=== PATIENT | female | born 1985 | race Caucasian/White ===

== ENCOUNTER → 2021-12-18 09:32 | Outpatient (CLI) | payer OTHER, SELFPAY ==
--- NOTE | ~2021-12-18 | US_ITS ---
EXAMINATION: US pelvic complete DATE: 12/18/2021 09:56 INDICATION: Abnormal uterine bleeding Comparison:No prior studies for comparison. TECHNIQUE: Multiple transabdominal and endovaginal sonographic images of the pelvis performed. FINDINGS: The uterus measures 12.1 x 5.2 x 7.2 cm. There are uterine fibroids measuring up to 6.5 and 5.1 cm maximum dimension respectively. The endometrial complex measures 1 cm. The right ovary measures 3.5 x 2.3 x 2.5 cm and the left ovary measures 2.5 x 1.9 x 2.1 cm. There ar e small follicles in each ovary. Normal doppler signal in both ovaries. There is no free fluid in the pelvis. There are no abnormal masses seen on either side. IMPRESSION: 1. Enlarged fibroid uterus. Reviewed, dictated and finalized at location A. IMPRESSION: 1. Enlarged fibroid uterus.
== END ==
PROVIDERS: PCP Nurse Practitioner; Visit Provider Nurse Practitioner
DX: N93.8 Other specified abnormal uterine and vaginal bleeding (principal); D25.9 Leiomyoma of uterus, unspecified
CPT/HCPCS: 76856

== ENCOUNTER 2023-06-24 13:19 | Emergency (ER) | payer OTHER, SELFPAY ==
[2023-06-24 13:20] VITALS: BP 149/99; PULSE 96; RESP 18; TEMP 36.6; O2SAT 100
[2023-06-24 15:48] VITALS: BP 154/94; PULSE 94; RESP 16; O2SAT 97
--- NOTE | 2023-06-24 16:12 | ED.GENADULT ---
HPI - General Adult General Chief complaint: Unspecified Stated complaint: issues standing x2 days, no appetite Time Seen by Provider: 06/24/23 16:10 Source: patient and other (fiance) History of Present Illness HPI narrative: This is a 38 yo female who presents with complaint of bilateral lower extremity weakness. She states this is causing issues with standing and walking for the past 2 days. She denies any pain or paresthesias. The issue is in her thighs and calves where she feels like she has decreased strength. No recent strenous work out or activity. She denies any diarrhea, cough, chest pain, difficulty breathing. No new medications. No headache. She states she doesn't have an appetite. She accidentally took a dose of Procardia too soon on Monday (took 2 doses within 12 hours of each other rather than 24 hours) which left her feeling lightheaded adn weak. She say Dr Raygoza's [employer] yesterday for a BP follow up but her BP was fine. Her fiance has had a headache. They deny any carbon monoxide producing devices in the home (have an electric space heater that isn't even currently being used). LMP October in the setting of bring on oral contraception. She is on iron supplementation. Related Data Allergies Allergy/AdvReac Type Severity Reaction Status Date / Time No Known Allergies Allergy Verified 06/24/23 13:20 [facility] Surgical History Surgical History H/O lithotripsy 2015 S/P ureteral stent placement 2019 Family History Family History Other Cerebrovascular accident Diabetes mellitus Heart disease Hypertension Social History Social History (Updated 06/26/23 @ 01:21 by Kacy Rich MD) Smoking status: Never smoker Second hand tobacco smoke exposure: No Alcohol use details: denies Substance use type: marijuana Other substance usage details: edibles; denies other drug use Living arrangements: with family 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 HEAD: Normocephalic, atraumatic. EYES: No scleral injection or icterus. ENT: Nares clear, no rhinorrhea or epistaxis. Poor dentition. NECK: Supple. Moves head freely. CHEST: Speaking in full sentences. No respiratory distress. HEART: Regular rate and rhythm. Normal peripheral pulses. ABDOMEN: Obese but Soft, nontender EXTREMITIES: Normal range of motion. No edema. 5/5 strength with ankle dorsiflexion/plantarflexion, knee flexion/extension, hip flexion/abduction/adduction. Demonstrates ability to stand and bear weight as well as stand on tip toes and heals. SKIN: Warm, dry, no rash. NEURO: No focal deficits. Alert and oriented. Sensation intact to gross touch throughout bilateral lower extremities. Brisk patellar reflex on the left; difficult to obtain patellar reflex on the right but able to elicit ankle reflex in this extremity PSYCH: Normal mood and affect. Course Vital Signs Vital signs: Vital Signs Temperature 98 F 06/24/23 13:20 Pulse Rate 96 06/24/23 13:20 Respiratory Rate 18 06/24/23 13:20 Blood Pressure 149/99 H 06/24/23 13:20 Pulse Oximetry 100 06/24/23 13:20 Oxygen Delivery Room Air 06/24/23 13:20 Temperature 98 F 06/24/23 13:20 Pulse Rate 94 06/24/23 15:48 Respiratory Rate 16 06/24/23 15:48 Blood Pressure 154/94 H 06/24/23 15:48 Pulse Oximetry 97 06/24/23 15:48 Oxygen Delivery Room Air 06/24/23 13:20 Medical Decision Making MDM Narrative Medical decision making narrative: Patient presents with 2 days of report of issues standing and difficulty walking related to weakness/ decreased strength in bilateral lower extremities. Denies a
[2023-06-24 17:09] LABS: Basophils Percent Auto 0.4 % (0.2-1.2); Eosinophils Absolute Auto 0.2 K/mm3 (0-0.3); Eosinophils Percent Auto 1.9 % (0-4.4); Hematocrit 44.5 % (37.0-47.0); Hemoglobin 14.6 g/dL (12.0-15.0); Immature Granulocyte Absolute 0.03 K/mm3 (0.00-0.031); Immature Granulocyte Percent A 0.3 % (0-0.5); Lymphocytes Absolute Auto 2.12 K/mm3 (0.9-3.2); Lymphocytes Percent Auto 20.3 % (18.3-44.2); Mean Corpuscular HGB Conc 32.8 g/dl (32-36); Mean Corpuscular Volume 88.5 fl (80-100); Mean Platelet Volume 11.2 fl (7.4-10.4); Monocytes Absolute Auto 0.5 K/mm3 (0.1-0.6); Monocytes Percent Auto 5.1 % (2.6-8.5); Neutrophils Absolute Auto 7.5 K/mm3 (1.3-6.7); Platelet Count Result 356 k/mm3 (150-375); Red Blood Count 5.03 M/mm3 (4.2-5.4); Red Cell Distribution Width 13.1 % (11.5-14.5); White Blood Count 10.4 K/mm3 (4.5-10.0)
[2023-06-24] MEDS: SODIUM CHLORIDE 0.9% IV 1,000 ML 999 ML IV CONT (17:10)
[2023-06-24 17:23] LABS: Influenza A QL RT-PCR Negative (Negative); Influenza B QL RT-PCR Negative (Negative); SARS-CoV-2 RNA PCR Negative (Negative)
[2023-06-24 17:41] LABS: Alanine Aminotransferase 19 U/L (6-35); Albumin Level 4.8 g/dL (3.5-5.1); Alkaline Phosphatase 100 U/L (38-126); Anion Gap 13 mmol/L (8-16); Aspartate Amino Transferase 23 U/L (14-36); Bilirubin,Total 0.7 mg/dL (0.2-1.3); Blood Urea Nitrogen 12 mg/dL (7-17); Calcium 9.7 mg/dL (8.4-10.2); Carbon Dioxide 23 mmol/L (22-30); Chloride 103 mmol/L (98-107); Creatine Kinase 76 U/L (30-135); Estimated CRCL calculation 84 ml/min; Estimated Glomerular Filt Rate > 60; Glucose 90 mg/dL (65-110); Magnesium 2.2 mg/dL (1.6-2.3); Potassium 3.9 mmol/L (3.4-5.0); Sodium 139 mmol/L (137-145)
== END 2023-06-24 18:52 | disposition home or self-care (01) ==
PROVIDERS: Emergency Provider Student in an Organized Health Care Education/Training Program; PCP Family Medicine
DX: R53.1 Weakness (principal); Z20.822 Contact with and (suspected) exposure to COVID-19
CPT/HCPCS: 36415; 80053; 82550; 83735; 85025; 87636; 96360; 99283; J7030

== ENCOUNTER 2023-08-05 20:45 | Emergency (ER) | payer OTHER, SELFPAY ==
[2023-08-05] VITALS (7 sets, daily range): BP systolic 153–163; BP diastolic 94–101; PULSE 66–85; RESP 16–27; TEMP 36.3; O2SAT 97–100
--- NOTE | ~2023-08-05 | CT_ITS ---
EXAMINATION: CT abdomen pelvis wo con DATE: 08/05/2023 22:16 INDICATION: Right flank pain TECHNIQUE: Computed tomography (CT) of the abdomen and pelvis was performed without intravenous contr ast. The dose-length product (DLP) was 501.16 mGy-cm. Automated exposure control and iterative recons truction technique were employed. COMPARISON: None FINDINGS: The lung bases are clear. The heart size is normal. The liver, spleen, pancreas, gallbladde r, and adrenal glands are normal. There is a 7 mm stone in the right renal pelvis. There is a 5 mm no nobstructing stone of the right kidney upper pole. There is a 4 mm nonobstructing stone of the right mid kidney. There is a 2 mm nonobstructing stone of the left kidney upper pole. No stones are identif ied in the ureters or bladder. No pathologically enlarged abdominal or pelvic lymph nodes are identif ied. No free intraperitoneal gas or evidence of bowel obstruction. The appendix is normal. IMPRESSION: 1. 7 mm stone in the right renal pelvis. 2. Bilateral nephrolithiasis. Reviewed, dictated and finalized at location F. FINISHER
[2023-08-05 21:20] LABS: Basophils Absolute Auto 0.1 K/mm3 (0.0-0.1); Basophils Percent Auto 0.4 % (0.2-1.2); Eosinophils Absolute Auto 0.2 K/mm3 (0-0.3); Eosinophils Percent Auto 1.6 % (0-4.4); Hematocrit 42.5 % (37.0-47.0); Hemoglobin 13.5 g/dL (12.0-15.0); Immature Granulocyte Absolute 0.02 K/mm3 (0.00-0.031); Immature Granulocyte Percent A 0.2 % (0-0.5); Lymphocytes Absolute Auto 1.12 K/mm3 (0.9-3.2); Lymphocytes Percent Auto 9.7 % (18.3-44.2); Mean Corpuscular HGB Conc 31.8 g/dl (32-36); Mean Corpuscular Hemoglobin 28.4 pg (26-34); Mean Corpuscular Volume 89.5 fl (80-100); Mean Platelet Volume 10.7 fl (7.4-10.4); Monocytes Absolute Auto 0.5 K/mm3 (0.1-0.6); Monocytes Percent Auto 4.4 % (2.6-8.5); Neutrophils Absolute Auto 9.7 K/mm3 (1.3-6.7); Neutrophils Percent Auto 83.7 % (45.5-73.1); Platelet Count Result 263 k/mm3 (150-375); Red Blood Count 4.75 M/mm3 (4.2-5.4); Red Cell Distribution Width 12.7 % (11.5-14.5); White Blood Count 11.6 K/mm3 (4.5-10.0)
--- NOTE | 2023-08-05 21:24 | ED.GENADULT ---
HPI - General Adult General Chief complaint: Abdominal Pain Stated complaint: R flank/abd pain Time Seen by Provider: 08/05/23 20:59 History of Present Illness HPI narrative: this is a 38-year-old female presenting ED with chief complaint of right flank pain. She has been having intermittent sharp flank pain for the last week. It radiates to her groin. Patient has history of kidney stones. She had 1 episode of nausea and vomiting today. She denies fevers chills chest pain difficulty breathing or urinary symptoms. Patient states she does not have a urologist despite having kidney stones requiring lithotripsy. Related Data Allergies Allergy/AdvReac Type Severity Reaction Status Date / Time No Known Allergies Allergy Verified 08/05/23 21:06 [facility] Surgical History Surgical History H/O lithotripsy 2014 S/P ureteral stent placement 2019 Family History Family History Other Cerebrovascular accident Diabetes mellitus Heart disease Hypertension Social History Social History Smoking status: Never smoker Second hand tobacco smoke exposure: No Alcohol use details: denies Substance use type: marijuana Other substance usage details: edibles; denies other drug use Living arrangements: with family 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 Head: atraumatic. EYES: EOMI, NOSE: Atraumatic NECK: Trachea midline RESPIRATORY: No increased rate of breathing CARDIOVASCULAR: RRR, ABDOMINAL: Soft nontender, no guarding or rebound, no CVA tenderness MUSCULOSKELETAl: No obvious deformities NEURO: Alert. Moving 4/4 extremities SKIN:: Warm, dry. Normal color PSYCHIATRIC: Normal affect Course Vital Signs Vital signs: Vital Signs Temperature 97.3 F L 08/05/23 20:46 Pulse Rate 85 08/05/23 20:46 Respiratory Rate 18 08/05/23 20:46 Blood Pressure 153/94 H 08/05/23 20:46 Pulse Oximetry 100 08/05/23 20:46 Oxygen Delivery Room Air 08/05/23 20:46 Temperature 97.3 F L 08/05/23 20:46 Pulse Rate 84 08/05/23 21:04 Respiratory Rate 19 08/05/23 21:04 Blood Pressure 163/101 H 08/05/23 21:04 Pulse Oximetry 99 08/05/23 21:04 Oxygen Delivery Room Air 08/05/23 20:46 Medical Decision Making MDM Narrative Medical decision making narrative: -Course: 38-year-old female presenting with flank pain. CT showed a 7 mm nonobstructing stone in the right renal pelvis. Urine had 6-10 white blood cells, negative nitrites and leuk esterase. White count 11.6. with no urinary symptoms. Will cover her with antibiotics Patient's pain was controlled in the emergency department. She is tolerating p.o. I discussed admission versus discharge with the patient. She has had kidney stones in the past and is comfortable going home and has verbalized understanding of the return precautions. Patient will be discharged with supportive medication and close Urology follow-up. 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 Urine showed 6-10 white blood cells, no bacteria seen, leuk esterase or nitrites. CT showed a 7 mm stone in the right renal pelvis. No hydronephrosis. -Interventions: 1000 mg Tylenol, 0.5 mg Dilaudid, 15 mg Toradol, 4 mg zofran -Shared decision making / Disposition: discharged -RX Motrin, Tylenol, oxycodone, Flomax, Zofran, cephalexin Vital Signs Vital Signs: Vital Signs Temperature
[2023-08-05 21:26] LABS: Appearance Urine Cloudy (Clear); Bacteria Urine None Seen /hpf; Bilirubin Urine Negative (Negative); Blood Urine 2+ (Negative); Color Urine Yellow (Yellow); Glucose Urine UA Negative (Negative); Ketones Urine 1+ mg/dL (Negative); Leukocyte Esterase Ur Negative LEU/UL (Negative); Nitrate Urine Negative (Negative); Non Pathogenic Casts 0-2; Protein Urine Trace mg/dL (Negative); Specific Grav Ur 1.018 (1.001-1.035); Squamous Epithelial Cell Urine None seen /hpf (Few); Urobilinogen Urine 0.2 mg/dL (<2.0); pH Urine 7.5 (5.0-9.0)
[2023-08-05 21:28] LABS: Add Urine Microscopic? YES
[2023-08-05 21:29] LABS: Alanine Aminotransferase 24 U/L (6-35); Albumin Level 4.8 g/dL (3.5-5.1); Alkaline Phosphatase 97 U/L (38-126); Anion Gap 11 mmol/L (8-16); Aspartate Amino Transferase 28 U/L (14-36); Bilirubin,Total 0.8 mg/dL (0.2-1.3); Blood Urea Nitrogen 14 mg/dL (7-17); Calcium 9.8 mg/dL (8.4-10.2); Carbon Dioxide 26 mmol/L (22-30); Chloride 104 mmol/L (98-107); Estimated CRCL calculation 75 ml/min; Estimated Glomerular Filt Rate > 60; Glucose 116 mg/dL (65-110); Lipase 39 U/L (23-300); Sodium 141 mmol/L (137-145)
[2023-08-05] MEDS: HYDROmorphone HCL INJ (*CRX) 1 MG/ML SYR 0.5 MG IV PUSH (22:48)
[2023-08-05] MEDS: ONDANSETRON INJ 4 MG/2 ML VIAL IV PUSH (22:48)
[2023-08-05] MEDS: ACETAMINOPHEN 500 MG TABLET 1000 MG PO (22:49)
[2023-08-06] VITALS: PULSE 73; RESP 23; O2SAT 98
[2023-08-06 00:15] VITALS: PULSE 71; RESP 23; O2SAT 98
[2023-08-06 00:30] VITALS: PULSE 71; RESP 21; O2SAT 99
[2023-08-06] MEDS: KETOROLAC 15 MG/ML VIAL (*BKC) IV PUSH (00:32)
[2023-08-06 00:45] VITALS: PULSE 66; RESP 21; O2SAT 99
[2023-08-06] MEDS: ONDANSETRON INJ 4 MG/2 ML VIAL 8 MG (00:49)
--- NOTE | 2023-08-06 00:56 | PC.NURSE ---
EDP DR. ROSS VERBAL ORDER 8MG O ZOFRAN IV, DUE TO PT STATING I FEEL NAUSEATED WHEN I AM TRYING TO EAT/ DRINK ANYTHING . THIS RN CONFIRMED PATIENT/ ROUTE/ AMOUNT/ AND MEDICATION USING CLOSED LOOP COMMUNICATION. EDP DR. ROSS CONFIRMED MEDICATION/ ROUTE/ AMOUNT/ AND PATIENT.
[2023-08-06 01:00] VITALS: PULSE 68; RESP 21; O2SAT 98
== END 2023-08-06 01:29 | disposition home or self-care (01) ==
PROVIDERS: Emergency Provider Emergency Medicine; PCP Family Medicine
DX: N20.0 Calculus of kidney (principal); Z87.442 Personal history of urinary calculi
CPT/HCPCS: 36415; 74176; 80053; 81001; 81025; 83690; 85025; 87086; 96374; 96375; 99284; A9270; J1170; J1885; J2405

== ENCOUNTER 2023-08-07 16:35 | Emergency (ER) | payer OTHER, SELFPAY ==
--- NOTE | ~2023-08-07 | XR_ITS ---
EXAMINATION: XR abdomen/kub 1V INDICATION: Kidney stone TECHNIQUE: Supine views of the abdomen were obtained on 2 radiographs. COMPARISON: CT from today FINDINGS: A 6 mm stone projects in the right renal pelvis. There is a 3 mm stone of the right kidney upper pole. Additional bilateral nephrolithiasis described on the CT is not well demonstrated there i s a phlebolith of the left pelvis. The bowel gas pattern is normal. The osseous structures are unrema rkable. IMPRESSION: 1. Right nephrolithiasis. Reviewed, dictated and finalized at location F. IER DRIVER IMPRESSION: 1. Right nephrolithiasis.
--- NOTE | ~2023-08-07 | CT_ITS ---
EXAMINATION: CT abdomen pelvis wo con DATE: 08/07/2023 20:46 INDICATION: Kidney stone TECHNIQUE: Computed tomography (CT) of the abdomen and pelvis was performed without intravenous contr ast. The dose-length product (DLP) was 510.65 mGy-cm. Automated exposure control and iterative recons truction technique were employed. COMPARISON: 08/05/2023 FINDINGS: The lung bases are clear. The heart size is normal. The liver, spleen, pancreas, gallbladde r, and adrenal glands are normal. A 7 mm stone is again noted in the right renal pelvis. There is mil d right hydronephrosis. There is a 5 mm nonobstructing stone of the right kidney upper pole. There is a 4 mm nonobstructing stone of the right mid kidney. There is a 2 mm nonobstructing stone of the lef t kidney upper pole. No stones are identified in the ureters or bladder. No pathologically enlarged a bdominal or pelvic lymph nodes are identified. No free intraperitoneal gas or evidence of bowel obstr uction. The appendix is normal. IMPRESSION: 1. Persistent 7 mm stone in the right renal pelvis with mild right hydronephrosis. 2. Bilateral nonobstructing nephrolithiasis. Reviewed, dictated and finalized at location F. LER APPRENTICE IMPRESSION: 1. Persistent 7 mm stone in the right renal pelvis with mild right hydronephros is. 2. Bilateral nonobstructing nephrolithiasis.
[2023-08-07 16:57] VITALS: BP 150/98; PULSE 112; RESP 16; TEMP 36.6; O2SAT 99
[2023-08-07 20:17] VITALS: BP 167/95; PULSE 82; RESP 16; TEMP 36.6; O2SAT 100
[2023-08-07 20:24] LABS: Appearance Urine Clear (Clear); Bacteria Urine None Seen /hpf; Bilirubin Urine Negative (Negative); Blood Urine 3+ (Negative); Color Urine Yellow (Yellow); Glucose Urine UA Negative (Negative); Ketones Urine 3+ mg/dL (Negative); Leukocyte Esterase Ur Negative LEU/UL (Negative); Nitrate Urine Negative (Negative); Non Pathogenic Casts 0-2; Protein Urine 2+ mg/dL (Negative); RBC Urine >100 /hpf (0-2); Specific Grav Ur 1.026 (1.001-1.035); Squamous Epithelial Cell Urine Few /hpf (Few); WBC Urine 0-5 /hpf; pH Urine 5.5 (5.0-9.0)
[2023-08-07 20:29] LABS: Add Urine Microscopic? YES
--- NOTE | 2023-08-07 20:35 | ED.FEMALEGU ---
HPI - Female Genitourinary General Chief complaint: Urogenital-Female Stated complaint: R KIDNEY STONE, N/V Time Seen by Provider: 08/07/23 20:04 Source: patient Mode of arrival: ambulatory Limitations: no limitations History of Present Illness HPI Narrative: 38 YEARS OLD WHITE FEMALE CAME TO THE EMERGENCY ROOM WITH HER BY PRIVATE CAR COMPLAINING OF RIGHT FLANK PAIN AND NAUSEA. THIS STARTED YESTERDAY, GOT WORSE TODAY. PATIENT CAME TO OUR EMERGENCY ROOM LAST 3RD DAY AND CT SCAN SHOWS 7 MM RIGHT RENAL PELVIS, PATIENT WAS DISCHARGED ON FLOMAX, IBUPROFEN, MOTRIN, OXYCODONE. PATIENT DID NOT GET BETTER ON THE ABOVE MEDICATION. PATIENT IS SCHEDULED TO SEE DR. CHICAS TOMORROW. Related Data Allergies Allergy/AdvReac Type Severity Reaction Status Date / Time No Known Allergies Allergy Verified 08/05/23 21:06 Review of Systems Review of Systems: All systems reviewed & are unremarkable except as noted in HPI and below PMFSH Surgical History Surgical History H/O lithotripsy 2014 S/P ureteral stent placement 2018 Family History Family History Other Cerebrovascular accident Diabetes mellitus Heart disease Hypertension Social History Social History Smoking status: Never smoker Second hand tobacco smoke exposure: No Alcohol use details: denies Substance use type: marijuana Other substance usage details: edibles; denies other drug use Living arrangements: with family 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 MUSCULOSKELETAL: NORMAL RANGE OF MOTION, NONTENDER BACK NEUROLOGIC: ALERT AND ORIENTED ?3, MINE DEPUTY IS NORMAL TESTED, NO GROSS MOTOR DEFICIT Course Reevaluation(s) Reevaluation #1: CURRENTLY PATIENT FEELING MUCH BETTER, MORE PAIN, DOES NOT WANT TO GO HOME WOULD LIKE TO STAY OVERNIGHT ALTHOUGH SCHEDULED TO SEE THE UROLOGIST IN A.M. Date: 08/07/23 Time: 22:13 Consultations Consultation #1: FRANCISCO PATIENT CAN GO HOME AND FOLLOW-UP DR. MARQUES IN THE MORNING Date: 08/07/23 Time: 22:22 Vital Signs Vital signs: Vital Signs Temperature 36.6 C 08/07/23 16:57 Pulse Rate 112 H 08/07/23 16:57 Respiratory Rate 16 08/07/23 16:57 Blood Pressure 150/98 H 08/07/23 16:57 Pulse Oximetry 99 08/07/23 16:57 Oxygen Delivery Room Air 08/07/23 16:57 Temperature 36.6 C 08/07/23 20:17 Pulse Rate 108 H 08/07/23 21:35 Respiratory Rate 16 08/07/23 21:35 Blood Pressure 177/95 H 08/07/23 21:35 Pulse Oximetry 100 08/07/23 21:35 Oxygen Delivery Room Air 08/07/23 16:57 MDM - Female Genitourinary MDM Narrative Medical decision making narrative: PATIENT PRESENTS WITH RIGHT FLANK PAIN, SIMILAR TO YESTERDAY. ASSOCIATED WITH NAUSEA. PATIENT REPORTED THAT THE PAIN MEDICATION NAUSEA MEDICATION ARE NOT WORKING. CT SCAN OF THE ABDOMEN AND PELVIS WITHOUT CONTRAST TODAY SHOWED PERSISTENT 7 MM STONE IN THE RIGHT RE
[2023-08-07 21:22] LABS: Basophils Percent Auto 0.2 % (0.2-1.2); Hematocrit 44.4 % (37.0-47.0); Hemoglobin 14.1 g/dL (12.0-15.0); Immature Granulocyte Absolute 0.03 K/mm3 (0.00-0.031); Immature Granulocyte Percent A 0.2 % (0-0.5); Lymphocytes Percent Auto 4.5 % (18.3-44.2); Mean Corpuscular HGB Conc 31.8 g/dl (32-36); Mean Corpuscular Hemoglobin 28.4 pg (26-34); Mean Corpuscular Volume 89.3 fl (80-100); Mean Platelet Volume 11.1 fl (7.4-10.4); Monocytes Absolute Auto 0.2 K/mm3 (0.1-0.6); Monocytes Percent Auto 1.6 % (2.6-8.5); Neutrophils Absolute Auto 12.4 K/mm3 (1.3-6.7); Neutrophils Percent Auto 93.5 % (45.5-73.1); Platelet Count Result 258 k/mm3 (150-375); Red Blood Count 4.97 M/mm3 (4.2-5.4); Red Cell Distribution Width 12.7 % (11.5-14.5); White Blood Count 13.3 K/mm3 (4.5-10.0)
[2023-08-07 21:33] LABS: Alanine Aminotransferase 27 U/L (6-35); Alkaline Phosphatase 101 U/L (38-126); Anion Gap 10 mmol/L (8-16); Aspartate Amino Transferase 26 U/L (14-36); Bilirubin,Total 0.8 mg/dL (0.2-1.3); Blood Urea Nitrogen 14 mg/dL (7-17); Carbon Dioxide 26 mmol/L (22-30); Chloride 103 mmol/L (98-107); Estimated Glomerular Filt Rate > 60; Glucose 147 mg/dL (65-110); Potassium 4.2 mmol/L (3.4-5.0); Sodium 139 mmol/L (137-145)
[2023-08-07 21:35] VITALS: BP 177/95; PULSE 108; RESP 16; O2SAT 100
[2023-08-07] MEDS: ONDANSETRON INJ 4 MG/2 ML VIAL 8 MG IV PUSH (21:46)
[2023-08-07] MEDS: HYDROmorphone HCL INJ (*CRX) 1 MG/ML SYR 0.5 MG IV PUSH ×2 (21:48→22:44)
[2023-08-07 22:47] VITALS: BP 177/89; PULSE 77; RESP 16; TEMP 36.7; O2SAT 100
== END 2023-08-07 22:49 | disposition home or self-care (01) ==
PROVIDERS: Emergency Medicine; Emergency Provider Emergency Medicine; PCP Family Medicine
DX: N20.0 Calculus of kidney (principal)
CPT/HCPCS: 36415; 74018; 74176; 80053; 81001; 81025; 85025; 96374; 96375; 96376; 99284; J1170; J2405

== ENCOUNTER 2023-08-16 11:03 | Outpatient (CLI) | payer OTHER, SELFPAY ==
--- NOTE | 2023-08-16 11:16 | ECG_ITS ---
Measurements Intervals [place] Rate: 100 P: 23 IA: 129 QRS: 13 QRSD: 88 T: 12 QT: 324 QTc: 419 Interpretive Statements SINUS TACHYCARDIA BASELINE ARTIFACT- I, II, III, AVR, AVL, AVF BORDERLINE ECG NO PREVIOUS ECG AVAILABLE FOR COMPARISON Electronically Signed On 08-16-2023 11:51:55 CRIBBER by David Conklin D.O.
[2023-08-16 12:09] LABS: INR 0.9; Prothrombin Time 12.9 Seconds (11.1-14.7)
[2023-08-16 12:10] LABS: Partial Thromboplastin Time 25.1 SECONDS (22.3-36.8)
== END 2023-08-16 11:04 | disposition home or self-care (01) ==
LOC: ANHSURGERY 11:07
PROVIDERS: PCP Family Medicine; Visit Provider Urology
DX: Z01.818 Encounter for other preprocedural examination (principal); N20.0 Calculus of kidney; I10 Essential (primary) hypertension; R00.0 Tachycardia, unspecified
CPT/HCPCS: 36415; 85610; 85730; 93005

== ENCOUNTER 2023-08-18 00:34 | Day surgery (SDC) | payer OTHER, SELFPAY ==
[2023-08-11 09:01] VITALS: BMI 35.1
--- NOTE | 2023-08-11 09:04 | PC.NURSE ---
Report to the Outpatient Waiting Room, entrance under the green pavilion located off [facility], at time 10:15 on date 08/18/23. Planned Procedure Time: 12:15. Time changes happen often and if your time is changed the preop area will call you the afternoon before. - You and your visitor will be asked to self-screen and do not enter if you have any COVID symptoms. - A mask is optional within the hospital at this time. Patients may have clear liquids (water, carbonated beverages, clear teas, apple juice) until 3 hours prior to surgery (9:15) with a maximum of 20 ounces. - No food from midnight until time of surgery Take the following medications with a SIP of water the morning of surgery: TYLENOL OR OXYCODONE IF NEEDED, NIFEDIPINE, ANTIBIOTIC (IF STILL TAKING) DO NOT STOP ANY OF YOUR OTHER PRESCRIPTION MEDICATIONS PRIOR TO SURGERY ?EXCEPT THE FOLLOWING Medications to discontinue per physician: IBUPROFEN Date to take last dose: 08/10/23 VITAMINS/SUPPLEMENTS LAST DOSE: 08/14/23 Please no make-up, nail tristanian, hairspray, perfume, deodorant, or body powder the day of surgery. No jewelry (including any body piercings) or valuables the day of surgery, leave them at home. Please take a shower or bath the night before, or the morning of, surgery with an antibacterial soap. Wear comfortable, loose fitting clothing. - Jewelry must be removed prior to entering the operating room. Rings and piercings that are not removed may be cut off. - The hospital will not accept responsibility for valuables. - Please leave all valuables, including medications, at home the day of surgery. If you are going home after surgery, a licensed cryogenic transport driver must drive you home. - NO public transportation without another adult if you receive anesthesia. - We recommend that an adult stay with you for 24 hours following discharge. - We also recommend that you do not drive, make important decision, drink alcoholic beverages, or take any drugs that were not prescribed by your health care provider for at least 24 hours after your discharge time. Follow any additional instructions given to you from your surgeon. If you or anyone in your household have experienced Covid symptoms in the past week, please notify your surgeon or the nurse liaison at the phone number below for possible testing. Telephone instructions given to PT - SCOTT COLEMAN and asked if any additional questions and then verbalized understanding. Patient advised to call surgeon office or pre surgery nurse liaison [phone] if any additional questions.
[2023-08-18] VITALS (9 sets, daily range): BP systolic 105–133; BP diastolic 61–81; PULSE 76–92; RESP 14–19; TEMP 36.6; O2SAT 94–100
--- NOTE | ~2023-08-18 | XR_ITS ---
XR abdomen/kub 1V 08/18/2023 11:18 Indication: Preop ESWL. Renal stones. Procedure: KUB Comparison: 08/07/2023 Findings: There are stable right renal stones. Bowel pattern nonobstructive. There is a punctate left renal stone. There is calcification in the pelvis, likely a phlebolith. Impression: 1: Bilateral nephrolithiasis. Reviewed, dictated and finalized at location B. ERING SERVICE AGENT Impression: 1: Bilateral nephrolithiasis.
--- NOTE | 2023-08-18 06:32 | WPDHPUPDATE1 ---
History and Physical Update Update Date/Time: 08/18/23 06:32 History and Physical has been reviewed, including an updated exam of the patient. There are NO changes in the patient's condition. Risks, benefits, and alternatives have been discussed and questions answered. Patient agrees to proceed with procedure.
--- NOTE | 2023-08-18 10:43 | P.PNAN_ITS ---
Anes - Initial Pre Proc Eval Procedure: Operation Date: 08/18/23 12:00 Proposed Procedures p Right Extracorporeal Shock Wave Lithotripsy - Wilbert Freitas MD Date/Time: 08/18/23 10:43 Surgeon: Wilbert Freitas MD Pre Op Diagnosis: right renal stones Patient Data Age: 38 Gender: F Height: 1.57 m Weight: 87.1 kg Allergies Allergy/AdvReac Type Severity Reaction Status Date / Time No Known Allergies Allergy Verified 08/11/23 08:59 Home Medications Medication Instructions Recorded Confirmed Type ferrous sulfate 324 mg (65 mg 324 mg PO DAILY #30 tabs 05/26/22 08/11/23 Rx iron) tablet,delayed release nifedipine 30 mg tablet,extended 30 mg PO DAILY #30 tabs 05/08/23 08/11/23 Rx release cephalexin 500 mg capsule 500 mg PO Q12H #14 caps 08/06/23 08/11/23 Rx ibuprofen 800 mg tablet 800 mg PO TID PRN pain 7 days #21 08/06/23 08/11/23 Rx tabs ondansetron 4 mg disintegrating 4 mg PO Q8H PRN nausea and 08/06/23 08/11/23 Rx tablet vomiting #30 tabs oxycodone 5 mg tablet 5 mg PO Q4H PRN pain #20 tabs 08/06/23 08/11/23 Rx tamsulosin 0.4 mg capsule (Flomax) 0.4 mg PO DAILY #30 caps 08/06/23 08/11/23 Rx acetaminophen 500 mg tablet 1,000 mg PO TID PRN Pain 08/11/23 08/11/23 History Patient hx anesthesia problems: none Family hx anesthesia problems: none Results Review: All pre-operative results and documents have been reviewed as part of the pre- operative evaluation. [facility] Past Medical History Medical History (Updated 08/18/23 @ 10:43 by Abisai Mckeon MD) Obesity Surgical History Surgical History H/O lithotripsy 2014 S/P ureteral stent placement 2018 Family History Family History Other Cerebrovascular accident Diabetes mellitus Heart disease Hypertension Social History Social History Smoking status: Never smoker Second hand tobacco smoke exposure: No Alcohol intake: never Alcohol use details: denies Substance use: never Substance use type: does not use Other substance usage details: edibles; denies other drug use Living arrangements: with family 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/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 Informed Consent: The patient's anesthetic plan and its attendant risks and benefits were discussed with the patient/family/POA. Questions were solicited and answers provided to the satisfaction of the patient/family/POA.
[2023-08-18] MEDS: LACTATED RINGERS 1,000 ML 30 ML IV CONT (10:56)
[2023-08-18] MEDS: ceFAZolin 2 GM/D5W 50 ML 2 GM/50 ML BAG IVPB (11:40)
--- NOTE | 2023-08-18 12:34 | W.PM.PROC2 ---
Procedure Note - Detailed Date of Procedure 08/18/23 Pre-op Diagnosis Right renal stones Post-op Diagnosis Same Procedure Performed Right ESWL Surgeon Wilbert Freitas MD Anesthesia General Description of Procedure The patient was brought to the operative suite where she was placed in the supine position on the Dornier lithotripsy table. The focal point of the lithotripter was placed at a 2 stones in her right kidney (7mm and 3mm). We splitl 2500 shocks at a power setting of 4 to these 2 stones. There appeared to be good fragmentation of the stones. The patient tolerated the procedure well and was taken to the recovery room in good condition.
[2023-08-18] MEDS: oxyCODONE HCL (*CRX) 5 MG TAB IR PO (14:02)
== END 2023-08-18 14:50 | disposition home or self-care (01) ==
PROVIDERS: PCP Family Medicine; Visit Provider Urology
PROC: (CPT 50590; principal; 2023-08-18 12:00)
DX: N20.0 Calculus of kidney (principal); E66.9 Obesity, unspecified; Z68.36 Body mass index [BMI] 36.0-36.9, adult
CPT/HCPCS: 50590; 74018; A9270; J0690; J1100; J2250; J2371; J2405; J2704; J3010; J7120

== ENCOUNTER 2023-09-05 14:50 | Outpatient (CLI) | payer OTHER, SELFPAY ==
--- NOTE | ~2023-09-05 | XR_ITS ---
Supine and upright views of the abdomen Clinical history: Renal stone COMPARISON: 08/18/2023 Findings: Bowel gas pattern is nonspecific. No evidence for obstruction or free air. Questionable 3 m m right renal stone. Stable left pelvic calcification. Osseous structures are intact. Impression: Questionable 3 mm right renal stone. Reviewed, dictated and finalized at [facility]. [employer]ASS GUN HAND Impression: Questionable 3 mm right renal stone.
== END 2023-09-05 14:51 ==
PROVIDERS: PCP Urology; Visit Provider Urology
DX: N20.0 Calculus of kidney (principal)
CPT/HCPCS: 74018

== ENCOUNTER 2023-09-28 14:08 | Emergency (ER) | payer OTHER, SELFPAY ==
[2023-09-28 14:10] VITALS: BP 144/83; PULSE 128; RESP 16; TEMP 36.4; O2SAT 100
--- NOTE | 2023-09-28 14:16 | ECG_ITS ---
Measurements Intervals [place] Rate: 116 P: 48 MA: 133 QRS: -1 QRSD: 90 T: 39 QT: 301 QTc: 420 Interpretive Statements SINUS TACHYCARDIA POOR R WAVE PROGRESSION, ANTERIOR LEADS ABNORMAL ECG COMPARED TO ECG 08/16/2023 11:40:32 HEART RATE HAS INCREASED Electronically Signed On 09-28-2023 14:52:16 UNDERWATER PHOTOGRAPHER by David Conklin D.O.
[2023-09-28 14:49] LABS: Basophils Percent Auto 0.4 % (0.2-1.2); Eosinophils Absolute Auto 0.3 K/mm3 (0-0.3); Eosinophils Percent Auto 2.9 % (0-4.4); Hematocrit 43.7 % (37.0-47.0); Hemoglobin 14.1 g/dL (12.0-15.0); Immature Granulocyte Absolute 0.03 K/mm3 (0.00-0.031); Immature Granulocyte Percent A 0.3 % (0-0.5); Lymphocytes Absolute Auto 1.22 K/mm3 (0.9-3.2); Lymphocytes Percent Auto 13.5 % (18.3-44.2); Mean Corpuscular HGB Conc 32.3 g/dl (32-36); Mean Corpuscular Hemoglobin 28.7 pg (26-34); Mean Corpuscular Volume 88.8 fl (80-100); Mean Platelet Volume 10.7 fl (7.4-10.4); Monocytes Absolute Auto 0.6 K/mm3 (0.1-0.6); Monocytes Percent Auto 6.3 % (2.6-8.5); Neutrophils Absolute Auto 6.9 K/mm3 (1.3-6.7); Neutrophils Percent Auto 76.6 % (45.5-73.1); Platelet Count Result 260 k/mm3 (150-375); Red Blood Count 4.92 M/mm3 (4.2-5.4); Red Cell Distribution Width 13.1 % (11.5-14.5); White Blood Count 9.1 K/mm3 (4.5-10.0)
[2023-09-28 14:58] LABS: Alanine Aminotransferase 22 U/L (6-35); Albumin Level 4.7 g/dL (3.5-5.1); Alkaline Phosphatase 105 U/L (38-126); Anion Gap 10 mmol/L (8-16); Aspartate Amino Transferase 25 U/L (14-36); Bilirubin,Total 0.6 mg/dL (0.2-1.3); Blood Urea Nitrogen 15 mg/dL (7-17); Calcium 9.9 mg/dL (8.4-10.2); Carbon Dioxide 23 mmol/L (22-30); Chloride 107 mmol/L (98-107); Estimated CRCL calculation 75 ml/min; Estimated Glomerular Filt Rate > 60; Glucose 163 mg/dL (65-110); Lipase 59 U/L (23-300); Potassium 3.9 mmol/L (3.4-5.0); Sodium 140 mmol/L (137-145)
[2023-09-28 15:01] LABS: INR 0.9; Partial Thromboplastin Time 24.2 SECONDS (22.3-36.8); Prothrombin Time 12.4 Seconds (11.1-14.7)
[2023-09-28 15:10] LABS: Troponin I < 0.012 ng/mL (0.000-0.034)
--- NOTE | 2023-09-28 16:02 | ED.ARRPALP ---
HPI - Arrhythmia/Palpitations General Chief Complaint: Arrhythmia/Palpitations <Henrique Madrid APRN - Last Filed: 09/28/23 16:09> Stated Complaint: HEART PALPATATIONS <Henrique Madrid APRN - Last Filed: 09/28/23 16:09> Time Seen by Provider: 09/28/23 16:00 <Henrique Madrid APRN - Last Filed: 09/28/23 16:09> Focused HPI: Liliane is a 38-year-old female patient presenting to the emergency room today for intermittent palpitations. Reports that these last for a few seconds and then resolves. She reports that she has been having this daily since July. Is taking nifedipine 30 mg daily. GENERAL: Well-appearing, well-nourished, and in no acute distress. HEAD: Normocephalic, atraumatic. CHEST: Clear to auscultation. No respiratory distress. HEART: Regular rate and rhythm. NEURO: Alert and oriented x3. Patient screened in triage and initial orders placed. Additional care and disposition to be based upon diagnostic testing and treatment. <Henrique Madrid APRN - Last Filed: 09/28/23 16:09> Related Data Allergies/Adverse Reactions: Allergies Allergy/AdvReac Type Severity Reaction Status Date / Time No Known Allergies Allergy Verified 09/28/23 17:15 <Henrique Madrid APRN - Last Filed: 09/28/23 16:09> PMFSH Past Medical History Medical History: Medical History (Updated 09/28/23 @ 19:01 by Jenifer Sandhu MD) Obesity <Henrique Madrid APRN - Last Filed: 09/28/23 16:09> Surgical History Surgical History: Surgical History H/O lithotripsy 2015 S/P ureteral stent placement 2019 <Henrique Madrid APRN - Last Filed: 09/28/23 16:09> Family History Family History: Family History Other Cerebrovascular accident Diabetes mellitus Heart disease Hypertension <Henrique Madrid APRN - Last Filed: 09/28/23 16:09> Social History Social History: Social History Smoking status: Never smoker Second hand tobacco smoke exposure: No Alcohol intake: never Alcohol use details: denies Substance use: never Substance use type: does not use Other substance usage details: edibles; denies other drug use Living arrangements: with family 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 5511 chart review performed by myself. Patient here with palpitations and tachycardia daily since being placed on nifedipine. Denies chest pain or shortness of breath. Initial heart rate was 128, repeat is 108. Triage record reviewed, CBC within normal limits, <0.027, CMP grossly normal, potassium 3.9, initial troponin negative. Repeat is pending. Repeat troponin negative. Magnesium normal. Delay in lab initiating TSH testing. I believe this can be followed by her primary care doctor. The results of pertinent diagnostic studies and exam findings were discussed. The patient?s provisional diagnosis and plan of care were discussed with the patient and present family. The patient and/or present family expressed understanding of the diagnosis and plan. The nurse was instructed to provide written instructions and appropriate follow-up information. The patient understands their need and responsibility to obtain additional follow-up as instructed. The risks of medications administered and prescribed were discussed with the patient and family present. <Jenifer Sandhu MD - Last Filed: 09/28/23 19:01> Vital Signs Vital signs: Vital Signs Temperature 97.6 F 09/28/23 14:10 Pulse Rate 128 H 09/28/23 14:10 Respira
[2023-09-28 17:11] VITALS: BP 160/95; PULSE 108; RESP 15; O2SAT 100
[2023-09-28 17:14] VITALS: BP 160/95; PULSE 112; RESP 21; O2SAT 100
[2023-09-28 17:19] LABS: D Dimer < 0.27 ug/mL (<0.48)
--- NOTE | 2023-09-28 17:20 | ECG_ITS ---
Measurements Intervals [place] Rate: 110 P: 37 [place]: 138 QRS: 13 QRSD: 92 T: 20 QT: 318 QTc: 432 Interpretive Statements SINUS TACHYCARDIA BORDERLINE R WAVE PROGRESSION, ANTERIOR LEADS ABNORMAL ECG COMPARED TO ECG 09/28/2023 14:29:03 NO SIGNIFICANT CHANGES Electronically Signed On 09-28-2023 18:28:09 [employer]IES REPAIRER by David Conklin D.O.
[2023-09-28 17:25] VITALS: BP 159/96; PULSE 108; RESP 20; O2SAT 99
[2023-09-28 17:31] VITALS: BP 156/92; PULSE 104; RESP 13; O2SAT 99
[2023-09-28 17:48] LABS: Troponin I < 0.012 ng/mL (0.000-0.034)
[2023-09-28 17:55] LABS: Magnesium 2.1 mg/dL (1.6-2.3)
[2023-09-28 18:17] VITALS: BP 138/85; PULSE 85; RESP 14; O2SAT 99
== END 2023-09-28 19:07 | disposition home or self-care (01) ==
PROVIDERS: Nurse Practitioner Family; Student in an Organized Health Care Education/Training Program; Emergency Provider Student in an Organized Health Care Education/Training Program; PCP Family Medicine
DX: R00.2 Palpitations (principal); I10 Essential (primary) hypertension
CPT/HCPCS: 36415; 80053; 83690; 83735; 84443; 84484; 85025; 85380; 85610; 85730; 93005; 99284

== ENCOUNTER 2023-11-06 22:17 | Emergency (ER) | payer OTHER, SELFPAY ==
[2023-11-06 22:25] VITALS: BP 173/93; PULSE 113; RESP 16; TEMP 36.3; O2SAT 99
[2023-11-07 02:20] VITALS: BP 161/109; PULSE 94; RESP 15; O2SAT 99
--- NOTE | 2023-11-07 04:26 | ED.GENADULT ---
HPI - General Adult General Chief complaint: Unspecified Stated complaint: heart rate at 126 Time Seen by Provider: 11/07/23 02:53 History of Present Illness HPI narrative: Patient presenting due to concern for elevated blood pressure, she is already on lisinopril for high blood pressure and earlier was having a very bad day at work, checked her blood pressure and saw that it was high, she taking pretty anxious and noticed that her heart rate was elevated, to 110s, so came to the ER. No headache, chest pain, shortness of breath, no focal numbness or weakness. Related Data Allergies Allergy/AdvReac Type Severity Reaction Status Date / Time No Known Allergies Allergy Verified 11/06/23 22:18 Review of Systems Review of Systems: CONST: No fever. HEENT: No sore throat C/V: Fast heart rate RESP: No cough GI: No abdominal pain : No dysuria. M/S: No joint pain. SKIN: No rash. NEURO: [No headache or focal numbness or weakness] PSYCH: Anxiety PMFSH Past Medical History Medical History Obesity Surgical History Surgical History H/O lithotripsy 2015 S/P ureteral stent placement 2019 Family History Family History Other Cerebrovascular accident Diabetes mellitus Heart disease Hypertension Social History Social History Smoking status: Never smoker Second hand tobacco smoke exposure: No Alcohol intake: never Alcohol use details: denies Substance use: never Substance use type: does not use Other substance usage details: edibles; denies other drug use Living arrangements: with family 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 EYES: EOMI, conjunctiva normal ENT: Hearing grossly intact LUNGS: Nonlabored breathing. HEART: [Regular rate and rhythm] ABD: [Soft], [nontender to palpation] EXT: Normal range of motion SKIN: [No rashes or lesions.] NEURO: [Alert and oriented x 3. No gross focal sensory or strength deficits.] PSYCH: Slightly anxious affect Course Vital Signs Vital signs: Vital Signs Temperature 97.3 F L 11/06/23 22:25 Pulse Rate 113 H 11/06/23 22:25 Respiratory Rate 16 11/06/23 22:25 Blood Pressure 173/93 H 11/06/23 22:25 Pulse Oximetry 99 11/06/23 22:25 Oxygen Delivery Room Air 11/06/23 22:25 Temperature 97.3 F L 11/06/23 22:25 Pulse Rate 94 11/07/23 02:20 Respiratory Rate 15 11/07/23 02:20 Blood Pressure 161/109 H 11/07/23 02:20 Pulse Oximetry 99 11/07/23 02:20 Oxygen Delivery Room Air 11/06/23 22:25 Medical Decision Making MDM Narrative Medical decision making narrative: Patient with asymptomatic hypertension and some anxiety over this. No signs or symptoms of end organ dysfunction; no chest pain or shortness of breath, neurological deficits, severe headaches, visual disturbance, oliguria, or symptoms of dissection/AAA). Long-term risks of hypertension, especially uncontrolled, were discussed including increased risks of kidney disease, vascular disease, stroke and heart disease, though I did let the patient know that I suspected this episode was more from stress at work and her anxieties. Sure he has follow-up with her primary care doctor in 2 days to discuss her blood pressure/management of this. She is reassured and well-appearing here and I do feel stable for discharge at this time. At time of discharge BP vital
== END 2023-11-07 03:22 | disposition home or self-care (01) ==
LOC: ANHED 11-07 03:15
PROVIDERS: Emergency Provider Emergency Medicine; PCP Family Medicine
DX: I10 Essential (primary) hypertension (principal); F41.9 Anxiety disorder, unspecified; E66.9 Obesity, unspecified; Z68.38 Body mass index [BMI] 38.0-38.9, adult
CPT/HCPCS: 99281